=== PATIENT | male | born 1990 | race Caucasian/White ===

== ENCOUNTER 2023-05-30 05:39 | Emergency (ER) | payer OTHER ==
[~2023-05-30] VITALS: Ht 165.1 cm; Wt 77.1 kg
[2023-05-30] MEDS ORDERED: TUSNEL LIQUID178 ML PO (09:12)
[2023-05-30] MEDS ORDERED: ZITHROMAX500 MG PO (09:12)
[2023-05-30] MEDS ORDERED: ZYRTEC10 M3 PO (09:12)
== END 2023-05-30 09:36 | disposition home or self-care (01) ==
LOC: ER 05:39
PROVIDERS: General Practice
DX: J06.9 Acute upper respiratory infection, unspecified (principal); Z20.822 Contact with and (suspected) exposure to COVID-19

== ENCOUNTER 2023-07-19 20:35 | Emergency (ER) | payer OTHER ==
[~2023-07-19] VITALS: Ht 165.1 cm; Wt 74.8 kg
[~2023-07-19 20:35] MED LIST: PEPCID40 MG PO; PROTONIX40 MG PO; TUSNEL LIQUID178 ML PO; ZITHROMAX500 MG PO; ZYRTEC10 M3 PO
== END 2023-07-19 22:53 | disposition home or self-care (01) ==
LOC: ER 20:35
DX: L03.818 Cellulitis of other sites (principal); Z88.0 Allergy status to penicillin

== ENCOUNTER 2023-08-10 21:06 | Emergency (ER) | payer OTHER ==
[~2023-08-10] VITALS: Ht 165.1 cm; Wt 68.0 kg
[2023-08-10 23:28] LABS: HEMATOCRIT 40.4 % (39.0-48.0); HEMOGLOBIN 14.1 g/dL (13-16.00); MEAN CELL VOLUME 88.7 fL (80.0-100.00); MEAN CORPUSCULAR HEMOGLOBIN 30.9 pg (27.00-32.0); MEAN CORPUSCULAR HGB CONC 34.9 g/dl (32.0-36.0); PLATELET COUNT 218 K/uL (150-450); RED BLOOD COUNT 4.56 M/uL (4.00-6.00); RED CELL DISTRIBUTION WIDTH 13.4 % (11.5-14.5)
[2023-08-10 23:47] LABS: ALBUMIN 4.1 gm/dL (3.4-5.0); BILIRUBIN TOTAL 0.23 mg/dL (0.3-1.2); CALCIUM 8.8 mg/dL (8.5-10.1); CREATININE SERUM 1.1 mg/dL (0.70-1.30); GFR 78.6; GLOBULINA 3.2 G/DL (2.4-3.5); POTASSIUM 3.94 mEq/L (3.5-5.1); TOTAL PROTEIN 7.3 gm/dL (6.4-8.2)
== END 2023-08-11 02:38 | disposition home or self-care (01) ==
LOC: ER 21:07
PROVIDERS: General Practice
DX: R19.7 Diarrhea, unspecified (principal)